=== PATIENT | female | born 1960 | race Asian ===

== ENCOUNTER → 2016-07-12 | Outpatient (CLI) | payer BC | LOC: COL.PUL 13:45 | DX: R06.02 Shortness of breath (principal) ==

== ENCOUNTER → 2016-09-26 | Outpatient (CLI) | payer BC | LOC: MC.RAD 10:17 | DX: Z12.31 Encounter for screening mammogram for malignant neoplasm of breast (principal) ==

== ENCOUNTER → 2017-04-03 | Outpatient (CLI) | payer BC | LOC: COL.PUL 03-28 13:00 | DX: R06.02 Shortness of breath (principal) ==

== ENCOUNTER → 2017-05-23 | Outpatient (CLI) | payer BC | LOC: COL.RAD 13:28 | DX: E01.0 Iodine-deficiency related diffuse (endemic) goiter (principal); R13.10 Dysphagia, unspecified ==

== ENCOUNTER → 2021-02-21 | Outpatient (CLI) | payer BC | LOC: MC.RAD 14:32 | DX: Z12.31 Encounter for screening mammogram for malignant neoplasm of breast (principal) ==

== ENCOUNTER 2023-04-27 06:46 | Emergency (ER) | payer SELFPAY ==
[~2023-04-27] VITALS: Ht 155 cm; Wt 61.4 kg
[2023-04-27] MEDS ORDERED: Lidocaine PF 2% (20 MG/ML) 2 ML VIAL IH ONE (07:15)
[2023-04-27 08:07] VITALS: BP 130/62; PULSE 72; TEMP 97.7
== END 2023-04-27 08:08 | disposition home or self-care (01) ==
LOC: COL.ER 06:46
DX: S61.211A Laceration without foreign body of left index finger without damage to nail, initial encounter (principal); W26.8XXA Contact with other sharp object(s), not elsewhere classified, initial encounter; Y99.0 Civilian activity done for income or pay